=== PATIENT | male | born 1985 | race Caucasian/White ===

== ENCOUNTER 2022-08-08 22:44 | Emergency (ER) | payer BC ==
[2022-08-08] MEDS ORDERED: HYDROmorphone 1 MG/ML Syringe IM ONE (23:24)
[2022-08-08 23:37] LABS: BASOPHILS PERCENT AUTO 0.2 % (0.2-1.2); EOSINOPHILS ABSOLUTE AUTO 0.1 x10^3/uL (0.0-0.5); EOSINOPHILS PERCENT AUTO 1.2 % (0.0-4.0); HEMATOCRIT 38.2 % (40.0-52.0); HEMOGLOBIN 12.6 g/dL (14.0-18.0); IMMATURE GRAN ABSOLUTE AUTO 0.02 x10^3/uL (0.00-0.07); LYMPHOCYTES ABSOLUTE AUTO 1.3 x10^3/uL (1.0-4.8); LYMPHOCYTES PERCENT AUTO 12.8 % (25.0-50.0); MEAN CORPUSCULAR HEMOGLOBIN 30.6 pg (26.0-32.0); MEAN CORPUSCULAR VOLUME 92.7 fL (78.0-93.0); MONOCYTES ABSOLUTE AUTO 0.8 x10^3/uL (0.0-0.8); MONOCYTES PERCENT AUTO 7.5 % (2.0-11.0); NEUTROPHILS PERCENT AUTO 78.1 % (50.0-80.0); PLATELET COUNT,PLT 385 x10^3/uL (130-400); RED BLOOD CELL COUNT 4.12 x10^6/uL (4.5-6.0); WHITE BLOOD CELL COUNT,WBC 10.2 x10^3/uL (4.0-10.0)
[2022-08-08 23:38] LABS: APPEARANCE,URINE CLEAR (CLEAR); BILIRUBIN,URINE NEGATIVE (NEGATIVE); COLOR,URINE YELLOW (YELLOW); GLUCOSE,URINE NEGATIVE (NEGATIVE); KETONES,URINE NEGATIVE (NEGATIVE); LEUKOCYTE ESTERASE,URINE NEGATIVE (NEGATIVE); NITRITE,URINE NEGATIVE (NEGATIVE); OCCULT BLOOD,URINE NEGATIVE (NEGATIVE); PROTEIN,URINE NEGATIVE (NEGATIVE)
[2022-08-08] MEDS ORDERED: Ondansetron 4 MG Tab.DIS PO ONE (23:42)
[2022-08-08 23:53] LABS: A/G RATIO 1.03; ALBUMIN 3.4 g/dL (3.4-5.0); ANION GAP 13.7 mmol/L (5-15); BILIRUBIN TOTAL 0.4 mg/dL (0.2-1.0); C-REACTIVE PROTEIN 7.7 mg/dL (<=0.9); CALCIUM 9.1 mg/dL (8.5-10.1); CREATININE 0.9 mg/dL (0.70-1.30); EST CRCL DRUG DOSING (CG) 122.15 mL/min; POTASSIUM,K 3.7 mmol/L (3.5-5.1); PROTEIN TOTAL,TP 6.7 g/dL (6.4-8.2)
[2022-08-08] MEDS ORDERED: Take Home: Acetaminophen/oxyCODONE 325-5 MG, 5 Tab Pack PO ONE (23:58)
[2022-08-09 00:13] VITALS: BP 161/100; PULSE 76
== END 2022-08-09 00:10 | disposition home or self-care (01) ==
LOC: VM.ED 22:44 → MERGE 22:44 → VM.ED 08-09 00:10
DX: K50.90 Crohn's disease, unspecified, without complications (principal); Z87.891 Personal history of nicotine dependence; Z88.2 Allergy status to sulfonamides
CPT/HCPCS: 36415; 80053; 81003; 82150; 83690; 85025; 86140; 96372; 99284; A9270-GY; J1170

== ENCOUNTER 2022-10-14 04:45 | Emergency (ER) | payer BC ==
[2022-10-14] MEDS ORDERED: HYDROmorphone 0.5 MG/0.5 ML Syringe IVPUSH ONE ×4 (05:01→08:32)
[2022-10-14 05:09] VITALS: PULSE 88
[2022-10-14 05:12] LABS: EOSINOPHILS PERCENT AUTO 0.2 % (0.0-4.0); HEMATOCRIT 43.4 % (40.0-52.0); HEMOGLOBIN 14.5 g/dL (14.0-18.0); IMMATURE GRAN ABSOLUTE AUTO 0.07 x10^3/uL (0.00-0.07); LYMPHOCYTES ABSOLUTE AUTO 1.5 x10^3/uL (1.0-4.8); MEAN CORPUSCULAR HEMOGLOBIN 30.5 pg (26.0-32.0); MEAN CORPUSCULAR HGB CONC 33.4 g/dL (32.0-36.0); MEAN CORPUSCULAR VOLUME 91.2 fL (78.0-93.0); MONOCYTES ABSOLUTE AUTO 1.3 x10^3/uL (0.0-0.8); MONOCYTES PERCENT AUTO 7.7 % (2.0-11.0); NEUTROPHILS ABSOLUTE AUTO 13.6 x10^3/uL (1.8-7.7); NEUTROPHILS PERCENT AUTO 82.7 % (50.0-80.0); PLATELET COUNT,PLT 415 x10^3/uL (130-400); RED BLOOD CELL COUNT 4.76 x10^6/uL (4.5-6.0); WHITE BLOOD CELL COUNT,WBC 16.4 x10^3/uL (4.0-10.0)
[2022-10-14] MEDS ORDERED: Ondansetron 4 MG/2 ML SDV IVPUSH ONE (05:13)
[2022-10-14 05:26] LABS: A/G RATIO 0.76; ALANINE AMINOTRANSFERASE,ALT 31 U/L (16-63); ALBUMIN 3.1 g/dL (3.4-5.0); ALKALINE PHOSPHATASE 123 U/L (46-116); ASPARTATE AMNIOTRANSFERASE,AST 16 U/L (15-37); BILIRUBIN TOTAL 0.6 mg/dL (0.2-1.0); BLOOD UREA NITROGEN,BUN 26 mg/dL (7-18); CALCIUM 9.4 mg/dL (8.5-10.1); CARBON DIOXIDE,CO2 32 mmol/L (21-32); CHLORIDE,CL 100 mmol/L (98-107); CREATININE 1.3 mg/dL (0.70-1.30); GLUCOSE RANDOM 102 mg/dL (70-99); POTASSIUM,K 3.5 mmol/L (3.5-5.1); PROTEIN TOTAL,TP 7.2 g/dL (6.4-8.2); SODIUM,NA 141 mmol/L (136-145)
[2022-10-14 05:28] LABS: ANION GAP 12.5 mmol/L (5-15); ESTIMATED GFR 72 mL/min (>=60)
[2022-10-14 05:45] LABS: APPEARANCE,URINE CLEAR (CLEAR); BILIRUBIN,URINE NEGATIVE (NEGATIVE); COLOR,URINE YELLOW (YELLOW); GLUCOSE,URINE NEGATIVE (NEGATIVE); KETONES,URINE NEGATIVE (NEGATIVE); LEUKOCYTE ESTERASE,URINE NEGATIVE (NEGATIVE); NITRITE,URINE NEGATIVE (NEGATIVE); OCCULT BLOOD,URINE NEGATIVE (NEGATIVE); PH,URINE 6.5 (5.0-8.0); PROTEIN,URINE NEGATIVE (NEGATIVE); UROBILINOGEN,URINE 0.2 EU/dL (0.2)
[2022-10-14] MEDS ORDERED: Naloxone 0.4 MG/ML SDV IVPUSH PRN (05:45)
[2022-10-14] MEDS ORDERED: HYDROmorphone 1 MG/ML Syringe IVPUSH ONE (05:45)
[2022-10-14] MEDS ORDERED: Sodium Chloride 0.9% 1,000 ML IV ONE (05:52)
[2022-10-14] MEDS ORDERED: Iopamidol 612 MG/ML 100 ML Bottle IVPUSH ONE (06:44)
[2022-10-14 07:29] VITALS: BP 164/107
[2022-10-14] MEDS ORDERED: Piperacillin/Tazobactam 4.5 GM in Sodium Chloride 0.9% 100 ML IV ONE (08:28)
== END 2022-10-14 09:06 | disposition short-term general hospital (02) ==
LOC: SUPCPDRO 04:45 → VM.ED 04:45
DX: K50.914 Crohn's disease, unspecified, with abscess (principal); K65.1 Peritoneal abscess; I10 Essential (primary) hypertension; K21.9 Gastro-esophageal reflux disease without esophagitis; Z88.2 Allergy status to sulfonamides; Z79.899 Other long term (current) drug therapy
CPT/HCPCS: 74177; 80053; 81003; 83605; 85025; 96361; 96374; 96375; 96376; 99285; J1170; J2405; J2543; J3490; J7030; Q9967